=== PATIENT | female | born 1985 | race American Indian/Alaskan Native ===

== ENCOUNTER 2017-06-24 17:23 | Emergency (ER) | payer SELFPAY ==
[2017-06-24 17:51] VITALS: BMI 30.3
--- NOTE | 2017-06-24 18:28 | ED PDOC ---
Arrival/HPI - General Historian: Patient EM Caveat: Acuity of Condition - Critical Care Critical Care Minutes: 75 minutes - History of Present Illness Time/Duration: Prior to Arrival Symptom Course: Unchanged, Improving Quality: Aching, Pressure, Tightness Severity Level: 5 Activities at Onset: Rest Context: Work - General Chief Complaint: Abdominal Pain Time Seen by Provider: 06/24/17 18:00 - History of Present Illness Narrative History of Present Illness (Text): 06/24/17 18:24 Pt is a 31 yr old female with no PMH, presents s tot the ED complaining of a sharp abdominal pain that began after 4 pm today that she has had on and off for the past month. Pt states there is a family history of colitis and worries that she might have this disease. Reports starting a new protein drink regimen that is colored blue causing blue stool. Denies GIB, chest pain, sob, back pain , DE JESUS, fever, chills, travel, recent illness, n/v/d or any other complaints. LMP : currently on day 4 of cycle. (Poonam Schwartz) Past Medical History - Provider Review Nursing Documentation Reviewed: Yes - Travel History Have you recently traveled outside [place] w/in the past 3 mons?: No - Infectious Disease Hx of Infectious Diseases: None - Psychiatric Hx Depression: No Hx Emotional Abuse: No Hx Physical Abuse: No Hx Substance Use: No - Surgical History Other/Comment: L knee surgery - Anesthesia Hx Anesthesia: Yes Hx Anesthesia Reactions: No Hx Malignant Hyperthermia: No - Suicidal Assessment Feels Threatened In Home Enviroment: No Family/Social History - Physician Review Nursing Documentation Reviewed: Yes Family/Social History: Other (colitis) Smoking Status: Light Smoker < 10 Cigarettes Daily Hx Alcohol Use: Yes (1 glass of wine daily) Frequency of alcohol use: Daily Hx Substance Use: No Hx Substance Use Treatment: No Allergies/Home Meds Allergies/Adverse Reactions: Allergies No Known Allergies Allergy (Verified 09/07/11 12:11) Home Medications: Home Meds Medication Instructions Recorded Confirmed No Known Home Med 09/07/11 06/24/17 Review of Systems - Review of Systems Constitutional: Normal Eyes: Normal ENT: Normal Respiratory: Normal Cardiovascular: Normal Gastrointestinal: Abdominal Pain, Stool Changes, Appetite Changes Genitourinary Female: Normal Musculoskeletal: Normal Skin: Normal Neurological: Normal Endocrine: Normal Hemo/Lymphatic: Normal Psychiatric: Normal Physical Exam Vital Signs Reviewed: Yes Temperature: Afebrile Blood Pressure: Normal Pulse: Regular Respiratory Rate: Normal Appearance: Positive for: Well-Appearing, Non-Toxic, Comfortable Pain Distress: Moderate Mental Status: Positive for: Alert and Oriented X 3 - Systems Exam Head: Present: Atraumatic, Normocephalic Pupils: Present: PERRL Extroacular Muscles: Present: EOMI Conjunctiva: Present: Normal Mouth: Present: Moist Mucous Membranes Neck: Present: Normal Range of Motion Respiratory/Chest: Present: Clear to Auscultation, Good Air Exchange. No: Respiratory Distress, Accessory Muscle Use Cardiovascular: Present: Regular Rate and Rhythm, Normal S1, S2. No: Murmurs Abdomen: Present: Tenderness (all quadrants but especially in RUQ), Distention ( firm), Normal Bowel Sounds, Guarding, Mass/Organomegaly. No: Peritoneal Signs, Rebound, McBurney's Point Tender, Rovsing's Sign Present, Hernias Back: Present: Normal Inspection Upper Extremity: Present: Normal Inspection. No: Cyanosis, Edema Lower Extremity: Present: Normal Inspection. No: Edema Neurological: Present: GCS=15, CN II-XII Intact, Speech Normal Skin: Present: Warm, Dry, Normal Color. No: Rashes Psychiatric: Present: Alert, Oriented x 3, Normal Insight, Normal Concentration Vital Signs Temp Pulse Resp BP Pulse Ox 06/24/17 23:18 98.7 F 76 17 140/92 H 99 06/24/17 22:15 71 18 154/98 H 100 06/24/17 18:08 98.3 F 86 18 128/76 99 Medical Decision Making - Lab Interpretations I have reviewed the lab results: Yes (Negative hCG) Interpretation: All labs normal - EKG Interpretation Interpreted by ED Physician: Yes (NSR, Rate of 73) ED Course and Treatment: 06/24/17 21:00 Case endorsed to me by BOB Schwartz, pending imaging results Report Date: 07/04/17 21:17 EXAM: US Abdomen Complete Dictated and Authenticated by: Emanuel Guillen MD IMPRESSION: 1. Centrally within the abdomen, there is a large mass-like area of heterogeneous echogenicity. Refer to the CT abdomen/pelvis report from the same day for further discussion. 2. There is thinning of the right renal cortex, consistent with cortical atrophy. 3. No sonographic evidence of acute cholecystitis. 4. Additional findings described above. Report Date: 07/04/17 21:25 EXAM: CT Abdomen and Pelvis Without Intravenous Contrast Dictated and Authenticated by: Emanuel Guillen MD IMPRESSION: 1. There is a large mass within the abdomen and pelvis measuring 21.3 x 14.7 x 24.8 cm. This is contiguous with the fundus of the uterus, with areas of cystic or necrotic change. Differential considerations include a large pedunculated fibroid or ovarian neoplasm. Surgical consultation is recommended. 2. The uterus is bulky in appearance, and additional fibroids cannot be excluded. 3. There is a small amount of free fluid within the pelvis. 4. There is wall thickening of the antrum of the stomach, suggestive of gastritis. 06/24/17 22:15 Patient was endorsed to me by Dr. Cai and BOB Schwartz pending imaging results. Urine results were clean, CT of Abdomen and Abdominal ultrasound showed a large mass, a large necrotic fibroid. Patient's lab workup was unremarkable. Because of the necrosis, I gave 1 dose of Zosy before patient transfer. The patient will be transferred to [facility]. The accepting ED physician is Dr. Lerner and the case will be admitted to Dr. Purdy's service. (Travis Block) 06/24/17 18:28 Impression Pt is a 31 yr old male with no PMH, presents s tot the ED complaining of a sharp abdominal pain that began after 4 pm today that she has had on and off for the past month. Pt states there is a family history of colitis and worries that she might have this disease. On exam, abdomen is quite globus and firm, especially in the right upper quadrant, involuntary guarding, positive psoas sign, R/o , w/up for diffuse abdominal pain Plan labs, hcg, imaging pain meds assess and dispo Progress note 06/24/17 22:17 (Poonam Schwartz) - Lab Interpretations Lab Results: 06/24/17 18:37 06/24/17 18:37 Lab Results 06/24/17 22:00: pO2 107 H, VBG pH 7.42, VBG pCO2 41.0, VBG HCO3 26.6, VBG Total CO2 27.9, VBG O2 Sat (Calc) 99.0 H, VBG Base Excess 1.9, VBG Potassium 3.9, Glucose 86, Lactate 0.7, FiO2 21.0, Sodium 137.0, Chloride 108.0 H, Venous Blood Potassium 3.9 06/24/17 21:15: Urine Color Yellow, Urine Appearance Clear, Urine pH 7.0, Ur Specific [place] 1.010, Urine Protein Negative, Urine Glucose (UA) Negative, Urine Ketones Negative, Urine Blood Negative, Urine Nitrate Negative, Urine Bilirubin Negative, Urine Urobilinogen 0.2, Ur Leukocyte Esterase Negative, Urine HCG, Qual Negative 06/24/17 18:37: Sodium 141, Potassium 4.5, Chloride 104, Carbon Dioxide 28, Anion Gap 15, BUN 12, Creatinine 1.1, Est GFR ( Amer) > 60, Est GFR (Non- Af Amer) 58, Random Glucose 96, Calcium 10.0, Total Bilirubin 0.3, AST 31, ALT 30, Alkaline Phosphatase 35 L, Total Protein 7.7, Albumin 4.3, Globulin 3.4, Albumin/Globulin Ratio 1.3, Amylase 91, Lipase 97 06/24/17 18:37: PT 12.2, INR 1.00, APTT 26.4 06/24/17 18:37: WBC 8.3, RBC 4.08, Hgb 11.4 L, Hct 35.0 L, MCV 85.8, MCH 27.9, MCHC 32.6, RDW 16.0 H, Plt Count 324, MPV 10.4, Gran % 67.1, Lymph % (Auto) 24.5 , Schleicher % (Auto) 6.7 H, Eos % (Auto) 1.3 L, Baso % (Auto) 0.4, Gran # 5.54, Lymph # (Auto) 2.0, Schleicher # (Auto) 0.6, Eos # (Auto) 0.1, Baso # (Auto) 0.03 - RAD Interpretation Radiology Orders: 06/24/17 18:13 ABD & PELVIS W/O PO OR IV CONT [CT] Stat ABDOMEN COMPLETE [US] Stat - Medication Orders Current Medication Orders: Discontinued Medications Piperacillin Sod/Tazobactam Sod (Zosyn 3.375 In Ns 100ml) 100 mls @ 200 mls/hr IVPB STAT STA PRN Reason: Protocol Stop: 06/24/17 22:29 Last Admin: 06/24/17 22:20 Dose: 200 mls/hr eMAR Start Stop Document 06/24/17 22:20 RD (Rec: 06/24/17 22:20 RD [id number]) Intravenous Solution Start Date 06/24/17 Start Time 22:20 End Date 06/24/17 End time 22:50 Total Infusion Time 30 Ketorolac Tromethamine (Toradol) 15 mg IM STAT STA Stop: 06/24/17 18:38 Last Admin: 06/24/17 18:42 Dose: 15 mg MAR Pain Assessment Document 06/24/17 18:42 GMD (Rec: 06/24/17 18:42 GMD [id number]) Pain Reassessment Is this a pain reassessment? No Presence of Pain Presence of Pain Yes IM Administration Charges Document 06/24/17 18:42 GMD (Rec: 06/24/17 18:42 GMD [id number]) Charges for Administration # of IM Administrations 1 Ketorolac Tromethamine (Toradol) 15 mg IVP STAT STA Stop: 06/24/17 21:07 Last Admin: 06/24/17 21:15 Dose: 15 mg MAR Pain Assessment Document 06/24/17 21:15 RD (Rec: 06/24/17 21:15 RD [id number]) Pain Reassessment Is this a pain reassessment? No Sleep Is patient sleeping during reassessment? No Presence of Pain Presence of Pain Yes Location Pain Location Body Site Abdomen Description Description Constant Pain Behavior Guarding Irritability Aggravating Factors ADL's Alleviating Factors/Management Medication Techniques Alleviating Factors Medication IVP Administration Document 06/24/17 21:15 RD (Rec: 06/24/17 21:15 RD [id number]) Charges for Administration # of IVP Administrations 1 Disposition/Present on Arrival - Present on Arrival Any Indicators Present on Arrival: Yes History of DVT/PE: No History of Uncontrolled Diabetes: No Urinary Catheter: No History of Decub. Ulcer: No History Surgical Site Infection Following: None - Disposition Have Diagnosis and Disposition been Completed?: Yes Disposition Time: 22:00 Patient Plan: Transfer To ([facility]) - Disposition Diagnosis: Fibroid, Neoplasm, Acute abdomen Disposition: Transfer HUMU Condition: STABLE Discharge Instructions (ExitCare): Acute Abdomen (Belly Pain), Adult (DC) Referrals: PCP,NO [Primary Care Provider] - Follow up with primary Forms: Individual Digital (Ivorian)
[2017-06-24 18:52] LABS: ALB/GLOB RATIO 1.3 (1.1-1.8); ALBUMIN 4.3 g/dL (3.0-4.8); ALT/SGPT 30 U/L (7-56); AMYLASE 91 U/L (35-125); AST/SGOT 31 U/L (14-36); BASO # 0.03 K/mm3 (0.0-2.0); BASO % 0.4 % (0.0-3.0); BLOOD UREA NITROGEN 12 mg/dL (7-21); EOS # 0.1 (0.0-0.7); EOS % 1.3 % (1.5-5.0); GFR AFRICAN-AMERICAN > 60; GFR NON-AFRICAN AMERICAN 58; GRAN # 5.54 (1.4-6.5); GRAN % 67.1 % (50.0-68.0); HEMOGLOBIN 11.4 g/dL (12.0-16.0); LIPASE 97 U/L (23-300); LYMPH % 24.5 % (22.0-35.0); MEAN CELL VOLUME 85.8 fl (80.0-105.0); MEAN CORPUSCULAR HEMOGLOBIN 27.9 pg (25.0-35.0); MEAN CORPUSCULAR HGB CONC 32.6 g/dl (31.0-37.0); MEAN PLATELET VOLUME 10.4 fl (7.0-11.0); MONO # 0.6 (0.1-0.6); MONO % 6.7 % (1.0-6.0); RBC 4.08 10^6/uL (3.5-6.1); WHITE BLOOD COUNT 8.3 10^3/ul (4.5-11.0)
[2017-06-24 19:03] LABS: PARTIAL THROMBOPLASTIN TIME 26.4 Seconds (25.1-36.5); PROTHROMBIN TIME 12.2 SECONDS (9.4-12.5)
--- NOTE | 2017-06-24 21:17 | US ---
EXAM: US Abdomen Complete EXAM DATE/TIME: 06/24/2017 6:13 PM CLINICAL HISTORY: The patient age is 31 years old and is female; Pain; Abdominal pain; Localized; Right upper quadrant (ruq); Additional info: [facility] pain Facility exam id and description: Us abd abdomen complete TECHNIQUE: Real-time ultrasound of the abdomen (complete) with image documentation. COMPARISON: No relevant prior studies available. FINDINGS: Liver: The liver measures 11.4 x 10.9 x 12.1 cm. There is normal echotexture of the liver. Gallbladder: No discrete gallstones are visualized. There is no significant gallbladder wall thickening or pericholecystic fluid. Common bile duct: The common bile that measures 0.3 cm, which is within normal limits. Pancreas: The pancreas is not visualized. Kidneys: The right kidney measured 10.6 x 5.4 x 5.2 cm. There is thinning of the right renal cortex, consistent with cortical atrophy. The left kidney measures 10.4 x 6.1 x 5.0 cm. No shadowing nephrolithiasis or hydronephrosis is visualized involving the bilateral kidneys. Spleen: The spleen measures 8.2 x 4.0 cm and is normal in echotexture. Aorta: The aorta is not visualized. Inferior vena cava: The IVC is not visualized. Other findings: Centrally within the abdomen, there is a large mass-like area of heterogeneous echogenicity. IMPRESSION: 1. Centrally within the abdomen, there is a large mass-like area of heterogeneous echogenicity. Refer to the CT abdomen/pelvis report from the same day for further discussion. 2. There is thinning of the right renal cortex, consistent with cortical atrophy. 3. No sonographic evidence of acute cholecystitis. 4. Additional findings described above.
[2017-06-24 21:20] LABS: URINE APPEARANCE CLEAR (CLEAR); URINE BILIRUBIN NEGATIVE (NEGATIVE); URINE BLOOD NEGATIVE (NEGATIVE); URINE COLOR YELLOW (YELLOW); URINE GLUCOSE (UA) NEGATIVE (NEGATIVE); URINE LEUKOCYTE ESTERASE NEGATIVE Leu/uL (NEGATIVE); URINE PROTEIN NEGATIVE mg/dL (<30 mg/dL); URINE UROBILINOGEN 0.2 E.U./dL (<1 E.U./dL)
--- NOTE | 2017-06-24 21:26 | CT ---
EXAM: CT Abdomen and Pelvis Without Intravenous Contrast EXAM DATE/TIME: 06/24/2017 6:13 PM CLINICAL HISTORY: The patient age is 31 years old and is female; Pain; Abdominal pain Facility exam id and description: Ct abdpelscon abd pelvis w/o po or iv cont TECHNIQUE: Axial computed tomography images of the abdomen and pelvis without intravenous contrast. All CT scans at this facility use one or more dose reduction techniques, viz.: automated exposure control; ma/kV adjustment per patient size (including targeted exams where dose is matched to indication; i.e. head); or iterative reconstruction technique. Coronal and sagittal reformatted images were created and reviewed. COMPARISON: US - ABDOMEN COMPLETE 2017-06-24 18:52 FINDINGS: Lung bases: Mild atelectatic changes are identified within the dependent portions of the lung bases. ABDOMEN: Liver: Unremarkable. No mass. Gallbladder and bile ducts: No calcified stones. No ductal dilation. Pancreas: Normal contour. No ductal dilation. Spleen: No splenomegaly. Adrenals: No mass. Kidneys and ureters: No obstructing stones. No hydronephrosis. Stomach and bowel: There is wall thickening of the antrum of the stomach, suggestive of gastritis. No obstruction. Evaluation of bowel is limited by the absence of oral contrast. Appendix: The appendix is partially visualized, without distention. PELVIS: Bladder: No stones. Reproductive: There is a large mass within the abdomen and pelvis measuring 21.3 x 14.7 x 24.8 cm. This is contiguous with the fundus of the uterus. This mass is heterogeneous in density, with areas of cystic or necrotic change. The largest area of hypodensity is visualized superiorly measuring 13.5 x 9.2 x 10.0 cm. Differential considerations include a large pedunculated fibroid or ovarian neoplasm. The uterus is bulky in appearance, and additional fibroids cannot be excluded. A hypodense vaginal insert/tampon is visualized. ABDOMEN and PELVIS: Intraperitoneal space: There is a small amount of free fluid within the pelvis. Bones/joints: No acute fracture. Vasculature: No abdominal aortic aneurysm. Lymph nodes: No enlarged lymph nodes. IMPRESSION: 1. There is a large mass within the abdomen and pelvis measuring 21.3 x 14.7 x 24.8 cm. This is contiguous with the fundus of the uterus, with areas of cystic or necrotic change. Differential considerations include a large pedunculated fibroid or ovarian neoplasm. Surgical consultation is recommended. 2. The uterus is bulky in appearance, and additional fibroids cannot be excluded. 3. There is a small amount of free fluid within the pelvis. 4. There is wall thickening of the antrum of the stomach, suggestive of gastritis.
[2017-06-24 21:27] LABS: HCG,QUALITATIVE URINE NEGATIVE (NEGATIVE)
[2017-06-24] MEDS ORDERED: Piperacillin/Tazobact 3.375 gm 100 ML IVPB STA (22:00)
[2017-06-24 22:17] LABS: VENOUS BLOOD GAS BASE EXCESS 1.9 mmol/L (0.0-2.0); VENOUS BLOOD GAS PO2 107 mm/Hg (30-55); VENOUS BLOOD PH 7.42 (7.32-7.43)
[2017-06-24 23:20] VITALS: BP 140/92; PULSE 76; RESP 17; TEMP 98.7; O2SAT 99
--- NOTE | 2017-06-25 17:45 | CARD ---
APPROVED REPORT EKG Measurement Heart [id number] <Conclusion> Poor data quality, interpretation may be adversely affected Normal sinus rhythm Nonspecific T wave abnormality Abnormal ECG
== END 2017-06-24 23:24 | disposition short-term general hospital (02) ==
LOC: ED 17:23
DX: D49.89 Neoplasm of unspecified behavior of other specified sites (principal); R10.0 Acute abdomen
CPT/HCPCS: 74176; 76700; 80053; 81003; 82150; 82803; 83690; 84703; 85025; 85610; 85730; 87040; 93005; 96365; 96372; 96375; 99284; J1885; J2543